=== PATIENT | male | born 1940 | race Caucasian/White ===

== ENCOUNTER 2022-01-19 16:48 | Inpatient (IN) | payer MEDICARE ==
[~2022-01-19] VITALS: Ht 167.6 cm; Wt 110.3 kg
[2022-01-19 19:00] VITALS: BP 138/93
[2022-01-19 21:07] VITALS: BP 112/68
[2022-01-19] MEDS: MELATONIN 5 MG TABLET PO PRN (21:13)
[2022-01-19] MEDS: ACETAMINOPHEN 325 MG TABLET PO PRN (21:13)
[2022-01-19] MEDS: DOCUSATE SODIUM 250 MG CAPSULE PO SCH (21:14)
[2022-01-19] MEDS: SENNA 187 MG TABLET PO SCH (21:14)
[2022-01-19] MEDS: METOPROLOL TARTRATE 25 MG TABLET PO SCH (21:14)
[2022-01-19] MEDS: APIXABAN 5 MG TABLET PO SCH (21:14)
[2022-01-19] MEDS: ETHYL ALCOHOL 62% ANTISEPTIC NASAL SANITIZER 0.6 ML AMPUL NASAL SCH (21:14)
[2022-01-20 03:46] VITALS: BP 122/88
[2022-01-20 08:20] VITALS: BP 123/68
[2022-01-20 08:32] LABS: BASOPHILS % (AUTO) 0.6 % (0.0-2.0); EOSINOPHILS % (AUTO) 2.7 % (1.0-6.0); HEMATOCRIT 46.8 % (41-53); HEMOGLOBIN 15.7 g/dL (13.5-17.5); LYMPHOCYTES % (AUTO) 21.6 % (22.0-44.0); MEAN CORPUSCULAR HEMOGLOBIN 29.6 pg (26.0-34.0); MEAN CORPUSCULAR HGB CONC 33.6 G/dL (31.0-37.0); MEAN CORPUSCULAR VOLUME 88 fL (80-100); MONOCYTES # (AUTO) 1.1 K/uL (0.1-1.0); MONOCYTES % (AUTO) 11.3 % (2.0-9.0); NEUTROPHILS % (AUTO) 63.8 % (40.0-70.0); PLATELET COUNT (AUTO) 205 K/uL (150-450); RED BLOOD CELL COUNT(AUTO) 5.31 MIL/uL (4.50-5.90); RED CELL DISTRIBUTION WIDTH 14.3 % (11.5-14.5)
[2022-01-20 08:47] LABS: ANION GAP 8 mmol/L (8-16); CARBON DIOXIDE 28 mmol/L (22-29); CHLORIDE 104 mmol/L (98-107); CREATININE 0.99 mg/dL (0.60-1.30); GLUCOSE,RANDOM 115 mg/dL (70-110); SODIUM SERUM 140 mmol/L (136-145); UREA NITROGEN, BLOOD 16 mg/dL (7-18)
[2022-01-20 08:48] LABS: ALANINE AMINOTRANSFERASE 35 U/L (12-78); ALBUMIN 3.2 g/dL (3.4-5.0); ALKALINE PHOSPHATASE 85 U/L (46-116); ASPARTATE AMINOTRANSFERASE 26 U/L (15-37); BILIRUBIN,TOTAL 1.1 mg/dL (0.1-1.0); CALCIUM, TOTAL 8.9 mg/dL (8.8-10.5); GLOMERULAR FILTR. RATE CALC > 60 mL/min (>60); TOTAL PROTEIN, SERUM 7.8 g/dL (6.4-8.2)
[2022-01-20] MEDS: MULTIVITAMINS WITH MINERALS, THERAPEUTIC TABLET PO SCH (09:07)
[2022-01-20] MEDS: ATORVASTATIN CALCIUM 40 MG TABLET PO SCH (09:08)
[2022-01-20] MEDS: METOPROLOL TARTRATE 25 MG TABLET PO SCH ×2 (09:08→20:55)
[2022-01-20] MEDS: DOCUSATE SODIUM 250 MG CAPSULE PO SCH ×2 (09:08→20:55)
[2022-01-20] MEDS: APIXABAN 5 MG TABLET PO SCH ×2 (09:08→20:55)
[2022-01-20] MEDS: ETHYL ALCOHOL 62% ANTISEPTIC NASAL SANITIZER 0.6 ML AMPUL NASAL SCH ×2 (09:09→21:42)
[2022-01-20 16:03] VITALS: BP 112/76
[2022-01-20] MEDS: CARBOXYMETHYLCELLULOSE SODIUM 0.4 ML OPHTHALMIC SOLUTION [PF] OU PRN (16:25)
[2022-01-20] MEDS: DICLOFENAC SODIUM 1% 100 GM GEL [4GM] TP PRN (16:25)
[2022-01-20 20:55] VITALS: BP 133/87
[2022-01-20] MEDS: SENNA 187 MG TABLET PO SCH (20:55)
[2022-01-20] MEDS: MELATONIN 5 MG TABLET PO PRN (20:55)
[2022-01-21] VITALS: BP 98/65
[2022-01-21] MEDS: ETHYL ALCOHOL 62% ANTISEPTIC NASAL SANITIZER 0.6 ML AMPUL NASAL SCH ×2 (08:06→20:02)
[2022-01-21] MEDS: DOCUSATE SODIUM 250 MG CAPSULE PO SCH ×2 (08:07→20:04)
[2022-01-21] MEDS: METOPROLOL TARTRATE 25 MG TABLET PO SCH ×2 (08:07→20:04)
[2022-01-21] MEDS: APIXABAN 5 MG TABLET PO SCH ×2 (08:07→20:04)
[2022-01-21] MEDS: ATORVASTATIN CALCIUM 40 MG TABLET PO SCH (08:07)
[2022-01-21] MEDS: MULTIVITAMINS WITH MINERALS, THERAPEUTIC TABLET PO SCH (08:08)
[2022-01-21] MEDS: DICLOFENAC SODIUM 1% 100 GM GEL [4GM] TP PRN ×2 (08:10→20:01)
[2022-01-21] MEDS: CARBOXYMETHYLCELLULOSE SODIUM 0.4 ML OPHTHALMIC SOLUTION [PF] OU PRN ×2 (08:10→20:01)
[2022-01-21 09:15] VITALS: BP 103/55
[2022-01-21 15:39] VITALS: BP 112/72
[2022-01-21 19:59] VITALS: BP 116/73
[2022-01-21] MEDS: SENNA 187 MG TABLET PO SCH (20:04)
[2022-01-21] MEDS: MELATONIN 5 MG TABLET PO PRN (20:04)
[2022-01-22] VITALS: BP 127/80
[2022-01-22 07:15] VITALS: BP 141/76
[2022-01-22] MEDS: ETHYL ALCOHOL 62% ANTISEPTIC NASAL SANITIZER 0.6 ML AMPUL NASAL SCH ×2 (08:09→20:45)
[2022-01-22] MEDS: APIXABAN 5 MG TABLET PO SCH ×2 (08:09→20:45)
[2022-01-22] MEDS: DOCUSATE SODIUM 250 MG CAPSULE PO SCH ×2 (08:09→20:45)
[2022-01-22] MEDS: ATORVASTATIN CALCIUM 40 MG TABLET PO SCH (08:10)
[2022-01-22] MEDS: ACETAMINOPHEN 325 MG TABLET PO PRN ×2 (08:10→13:42)
[2022-01-22] MEDS: METOPROLOL TARTRATE 25 MG TABLET PO SCH ×2 (08:10→20:44)
[2022-01-22] MEDS: MULTIVITAMINS WITH MINERALS, THERAPEUTIC TABLET PO SCH (08:10)
[2022-01-22 09:30] VITALS: BP 112/62
[2022-01-22 12:16] LABS: BASOPHILS % (AUTO) 0.8 % (0.0-2.0); EOSINOPHILS % (AUTO) 6.3 % (1.0-6.0); HEMATOCRIT 47.4 % (41-53); HEMOGLOBIN 15.7 g/dL (13.5-17.5); LYMPHOCYTES # (AUTO) 1.3 K/uL (1.0-4.8); LYMPHOCYTES % (AUTO) 16.7 % (22.0-44.0); MEAN CORPUSCULAR HEMOGLOBIN 29.5 pg (26.0-34.0); MEAN CORPUSCULAR HGB CONC 33.2 G/dL (31.0-37.0); MEAN CORPUSCULAR VOLUME 89 fL (80-100); MONOCYTES # (AUTO) 0.8 K/uL (0.1-1.0); NEUTROPHILS # (AUTO) 5.1 K/uL (1.8-7.7); NEUTROPHILS % (AUTO) 66.2 % (40.0-70.0); PLATELET COUNT (AUTO) 251 K/uL (150-450); RED BLOOD CELL COUNT(AUTO) 5.35 MIL/uL (4.50-5.90); RED CELL DISTRIBUTION WIDTH 14.4 % (11.5-14.5)
[2022-01-22 12:31] LABS: ALANINE AMINOTRANSFERASE 58 U/L (12-78); ALBUMIN 3.2 g/dL (3.4-5.0); ALKALINE PHOSPHATASE 88 U/L (46-116); ANION GAP 10 mmol/L (8-16); ASPARTATE AMINOTRANSFERASE 56 U/L (15-37); BILIRUBIN,TOTAL 0.8 mg/dL (0.1-1.0); CALCIUM, TOTAL 9.2 mg/dL (8.8-10.5); CARBON DIOXIDE 25 mmol/L (22-29); CHLORIDE 102 mmol/L (98-107); GLUCOSE,RANDOM 124 mg/dL (70-110); PHOSPHORUS 5.5 mg/dL (2.5-4.9); POTASSIUM 3.9 mmol/L (3.5-5.1); SODIUM SERUM 137 mmol/L (136-145); TOTAL PROTEIN, SERUM 8.1 g/dL (6.4-8.2); UREA NITROGEN, BLOOD 21 mg/dL (7-18)
[2022-01-22 12:32] LABS: GLOMERULAR FILTR. RATE CALC > 60 mL/min (>60)
[2022-01-22] MEDS: DICLOFENAC SODIUM 1% 100 GM GEL [4GM] TP PRN (13:44)
[2022-01-22 16:05] VITALS: BP 118/63
[2022-01-22] MEDS: DiphenhydrAMINE/ZINC ACET 30 GM CREAM TP PRN (16:12)
[2022-01-22 20:40] VITALS: BP 128/74
[2022-01-22] MEDS: SENNA 187 MG TABLET PO SCH (20:45)
[2022-01-23] VITALS: BP 119/80
[2022-01-23 06:24] LABS: BASOPHILS % (AUTO) 0.9 % (0.0-2.0); EOSINOPHILS % (AUTO) 8.2 % (1.0-6.0); HEMATOCRIT 43.8 % (41-53); HEMOGLOBIN 14.7 g/dL (13.5-17.5); LYMPHOCYTES # (AUTO) 1.6 K/uL (1.0-4.8); LYMPHOCYTES % (AUTO) 23.4 % (22.0-44.0); MEAN CORPUSCULAR HEMOGLOBIN 29.6 pg (26.0-34.0); MEAN CORPUSCULAR HGB CONC 33.7 G/dL (31.0-37.0); MEAN CORPUSCULAR VOLUME 88 fL (80-100); MONOCYTES # (AUTO) 0.6 K/uL (0.1-1.0); MONOCYTES % (AUTO) 8.8 % (2.0-9.0); NEUTROPHILS % (AUTO) 58.7 % (40.0-70.0); PLATELET COUNT (AUTO) 249 K/uL (150-450); RED BLOOD CELL COUNT(AUTO) 4.99 MIL/uL (4.50-5.90); RED CELL DISTRIBUTION WIDTH 14.2 % (11.5-14.5)
[2022-01-23 06:56] LABS: ALANINE AMINOTRANSFERASE 48 U/L (12-78); ALBUMIN 2.9 g/dL (3.4-5.0); ALKALINE PHOSPHATASE 75 U/L (46-116); ANION GAP 8 mmol/L (8-16); ASPARTATE AMINOTRANSFERASE 36 U/L (15-37); BILIRUBIN,TOTAL 0.6 mg/dL (0.1-1.0); CALCIUM, TOTAL 8.7 mg/dL (8.8-10.5); CARBON DIOXIDE 27 mmol/L (22-29); CHLORIDE 105 mmol/L (98-107); CREATININE 1.01 mg/dL (0.60-1.30); GLUCOSE,RANDOM 103 mg/dL (70-110); PHOSPHORUS 4.4 mg/dL (2.5-4.9); POTASSIUM 3.7 mmol/L (3.5-5.1); SODIUM SERUM 140 mmol/L (136-145); TOTAL PROTEIN, SERUM 7.1 g/dL (6.4-8.2); UREA NITROGEN, BLOOD 19 mg/dL (7-18)
[2022-01-23 07:04] LABS: GLOMERULAR FILTR. RATE CALC > 60 mL/min (>60)
[2022-01-23] MEDS: ATORVASTATIN CALCIUM 40 MG TABLET PO SCH (08:38)
[2022-01-23] MEDS: DOCUSATE SODIUM 250 MG CAPSULE PO SCH ×2 (08:38→21:05)
[2022-01-23] MEDS: ETHYL ALCOHOL 62% ANTISEPTIC NASAL SANITIZER 0.6 ML AMPUL NASAL SCH ×2 (08:38→21:06)
[2022-01-23] MEDS: APIXABAN 5 MG TABLET PO SCH ×2 (08:38→21:06)
[2022-01-23] MEDS: MULTIVITAMINS WITH MINERALS, THERAPEUTIC TABLET PO SCH (08:39)
[2022-01-23] MEDS: METOPROLOL TARTRATE 25 MG TABLET PO SCH ×2 (08:39→21:05)
[2022-01-23 09:35] VITALS: BP 109/80
[2022-01-23 16:01] VITALS: BP 102/63
[2022-01-23] MEDS: DiphenhydrAMINE/ZINC ACET 30 GM CREAM TP PRN (19:29)
[2022-01-23 21:03] VITALS: BP 137/80
[2022-01-23] MEDS: DICLOFENAC SODIUM 1% 100 GM GEL [4GM] TP PRN (21:05)
[2022-01-23] MEDS: SENNA 187 MG TABLET PO SCH (21:05)
[2022-01-23] MEDS: MELATONIN 5 MG TABLET PO PRN (21:06)
[2022-01-23] MEDS: CARBOXYMETHYLCELLULOSE SODIUM 0.4 ML OPHTHALMIC SOLUTION [PF] OU PRN (21:06)
[2022-01-24 02:12] VITALS: BP 113/67
[2022-01-24] MEDS: ETHYL ALCOHOL 62% ANTISEPTIC NASAL SANITIZER 0.6 ML AMPUL NASAL SCH ×2 (08:04→20:06)
[2022-01-24] MEDS: MULTIVITAMINS WITH MINERALS, THERAPEUTIC TABLET PO SCH (08:05)
[2022-01-24] MEDS: METOPROLOL TARTRATE 25 MG TABLET PO SCH ×2 (08:05→20:06)
[2022-01-24] MEDS: DOCUSATE SODIUM 250 MG CAPSULE PO SCH ×2 (08:06→20:07)
[2022-01-24] MEDS: ATORVASTATIN CALCIUM 40 MG TABLET PO SCH (08:06)
[2022-01-24] MEDS: APIXABAN 5 MG TABLET PO SCH ×2 (08:06→20:07)
[2022-01-24] MEDS: DiphenhydrAMINE/ZINC ACET 30 GM CREAM TP PRN ×2 (08:34→20:07)
[2022-01-24 09:19] VITALS: BP 109/72
[2022-01-24 16:00] VITALS: BP 104/74
[2022-01-24 20:02] VITALS: BP 133/61
[2022-01-24] MEDS: SENNA 187 MG TABLET PO SCH (20:06)
[2022-01-24] MEDS: MELATONIN 5 MG TABLET PO PRN (20:06)
[2022-01-24] MEDS: DICLOFENAC SODIUM 1% 100 GM GEL [4GM] TP PRN (20:07)
[2022-01-24] MEDS: CARBOXYMETHYLCELLULOSE SODIUM 0.4 ML OPHTHALMIC SOLUTION [PF] OU PRN (20:07)
[2022-01-25 00:05] VITALS: BP 110/75
[2022-01-25] MEDS: ATORVASTATIN CALCIUM 40 MG TABLET PO SCH (08:01)
[2022-01-25] MEDS: ETHYL ALCOHOL 62% ANTISEPTIC NASAL SANITIZER 0.6 ML AMPUL NASAL SCH ×2 (08:01→21:45)
[2022-01-25] MEDS: APIXABAN 5 MG TABLET PO SCH ×2 (08:01→21:46)
[2022-01-25] MEDS: DOCUSATE SODIUM 250 MG CAPSULE PO SCH ×2 (08:01→21:00)
[2022-01-25] MEDS: MULTIVITAMINS WITH MINERALS, THERAPEUTIC TABLET PO SCH (08:02)
[2022-01-25] MEDS: METOPROLOL TARTRATE 25 MG TABLET PO SCH ×2 (08:02→21:46)
[2022-01-25 08:47] VITALS: BP 119/68
[2022-01-25] MEDS: CARBOXYMETHYLCELLULOSE SODIUM 0.4 ML OPHTHALMIC SOLUTION [PF] OU PRN (10:42)
[2022-01-25] MEDS: SENNA 187 MG TABLET PO SCH (21:00)
[2022-01-25 21:30] VITALS: BP 129/78
[2022-01-26 01:11] VITALS: BP 122/82
[2022-01-26] MEDS ORDERED: APIX5TAB PO ×2 (04:35→09:58)
[2022-01-26] MEDS ORDERED: MULT-1133 PO (04:35)
[2022-01-26] MEDS ORDERED: ATOR40TA28 PO (04:35)
[2022-01-26] MEDS ORDERED: METO25 PO ×2 (04:35→09:58)
[2022-01-26] MEDS ORDERED: SENN-308 PO (04:35)
[2022-01-26] MEDS: ETHYL ALCOHOL 62% ANTISEPTIC NASAL SANITIZER 0.6 ML AMPUL NASAL SCH ×2 (07:48→21:13)
[2022-01-26] MEDS: APIXABAN 5 MG TABLET PO SCH ×2 (07:48→21:13)
[2022-01-26] MEDS: MULTIVITAMINS WITH MINERALS, THERAPEUTIC TABLET PO SCH (07:49)
[2022-01-26] MEDS: METOPROLOL TARTRATE 25 MG TABLET PO SCH ×2 (07:49→21:13)
[2022-01-26] MEDS: ATORVASTATIN CALCIUM 40 MG TABLET PO SCH (07:49)
[2022-01-26] MEDS: DOCUSATE SODIUM 250 MG CAPSULE PO SCH ×2 (07:50→21:13)
[2022-01-26] MEDS: ACETAMINOPHEN 325 MG TABLET PO PRN (07:51)
[2022-01-26] MEDS: DiphenhydrAMINE/ZINC ACET 30 GM CREAM TP PRN (07:56)
[2022-01-26 09:03] VITALS: BP 112/64
[2022-01-26] MEDS ORDERED: MULT-1239 PO (09:58)
[2022-01-26] MEDS ORDERED: ATOR40TA71 PO (09:58)
[2022-01-26] MEDS ORDERED: DICL100G51 TP (09:58)
[2022-01-26] MEDS ORDERED: SENN-187 PO (09:58)
[2022-01-26 16:05] VITALS: BP 131/63
[2022-01-26 21:00] VITALS: BP 111/65
[2022-01-26] MEDS: SENNA 187 MG TABLET PO SCH (21:14)
[2022-01-27 02:18] VITALS: BP 130/87
[2022-01-27 08:00] VITALS: BP 119/87
[2022-01-27] MEDS: ETHYL ALCOHOL 62% ANTISEPTIC NASAL SANITIZER 0.6 ML AMPUL NASAL SCH (08:34)
[2022-01-27] MEDS: METOPROLOL TARTRATE 25 MG TABLET PO SCH (08:35)
[2022-01-27] MEDS: APIXABAN 5 MG TABLET PO SCH (08:35)
[2022-01-27] MEDS: DOCUSATE SODIUM 250 MG CAPSULE PO SCH (08:35)
[2022-01-27] MEDS: ATORVASTATIN CALCIUM 40 MG TABLET PO SCH (08:35)
[2022-01-27] MEDS: MULTIVITAMINS WITH MINERALS, THERAPEUTIC TABLET PO SCH (08:35)
== END 2022-01-27 13:10 | disposition home health service (06) | DRG 56 ==
LOC: EDBD → 2WR 19:00
PROVIDERS: ADMIT Physical Medicine & Rehabilitation; ATTEND Physical Medicine & Rehabilitation
DX: I69.351 Hemiplegia and hemiparesis following cerebral infarction affecting right dominant side (principal); I63.9 Cerebral infarction, unspecified; I48.20 Chronic atrial fibrillation, unspecified; I50.20 Unspecified systolic (congestive) heart failure; E66.01 Morbid (severe) obesity due to excess calories; Z68.39 Body mass index [BMI] 39.0-39.9, adult; E78.5 Hyperlipidemia, unspecified; E80.4 Gilbert syndrome; G31.84 Mild cognitive impairment of uncertain or unknown etiology; G47.00 Insomnia, unspecified; I11.0 Hypertensive heart disease with heart failure; J44.9 Chronic obstructive pulmonary disease, unspecified; K21.9 Gastro-esophageal reflux disease without esophagitis; K59.00 Constipation, unspecified; Z79.01 Long term (current) use of anticoagulants; Z87.891 Personal history of nicotine dependence
CPT/HCPCS: 71046; 74019; 76700; 80053; 83735; 84100; 85025; 87081; 92507; 92523; 93005; 93970; 97110; 97112; 97116; 97161; 97167; 97530; 97535; 99366; Q9967; 36415-L1; 36415-TC